=== PATIENT | female | born 1990 | race Caucasian/White ===

== ENCOUNTER 2016-08-15 15:00 | Emergency (ER) | payer OTHER ==
[~2016-08-15] VITALS: Ht 162.6 cm; Wt 52.2 kg
[~2016-08-15 15:00] MED LIST: METO10TA81 PO
--- NOTE | 2016-08-15 15:27 | PHYS DOC ---
Past Medical History Past Medical History: No Pertinent History Past Surgical History: No Surgical History, Other Additional Past Surgical Histo: CYST REMOVED FROM HAND Smoking: Cigarettes Additional Information: 0.5 PPD Alcohol Use: None Drug Use: None Adult General Chief Complaint Chief Complaint: ABDOMINAL PAIN HPI HPI Patient is a 26 year old female who presents with since 6 AM and has had numerous episodes of vomiting, mild slight epigastric pain no diarrhea no fever. The pain does not radiate or get worse with eating. No dysuria or frequency or flank pain. Has had prior episodes similar to this. Is taking Tylenol 3 for a tooth ache. Last menstrual period was 3 days ago. Review of Systems Review of Systems Constitutional: Denies fever or chills [] Eyes: Denies change in visual acuity, redness, or eye pain [] HENT: Denies nasal congestion or sore throat [] Respiratory: Denies cough or shortness of breath [] Cardiovascular: No additional information not addressed in HPI [] GI: Denies abdominal pain, nausea, vomiting, bloody stools or diarrhea [] : Denies dysuria or hematuria [] Musculoskeletal: Denies back pain or joint pain [] Integument: Denies rash or skin lesions [] Neurologic: Denies headache, focal weakness or sensory changes [] Endocrine: Denies polyuria or polydipsia [] All systems negative except as mentioned in history present illness Current Medications Current Medications Current Medications Medications (Trade) Dose Ordered Sig/Oscar Start Time Stop Time Status Last Admin Dose Admin Diphenhydramine HCl (Benadryl) 25 mg 1X ONCE 08/15/16 18:00 08/15/16 18:01 DC 08/15/16 17:56 25 MG Hydromorphone HCl (Dilaudid) 0.5 mg 1X ONCE 08/15/16 18:30 08/15/16 18:31 DC 08/15/16 18:33 0.5 MG Info (Do NOT chart on this entry -- for MONITORING) 1 each PRN DAILY PRN 08/15/16 17:15 08/17/16 17:14 Iohexol (Omnipaque 300 Mg/ml) 75 ml 1X ONCE 08/15/16 17:30 08/15/16 17:31 DC 08/15/16 17:19 75 ML Metoclopramide HCl (Reglan) 5 mg 1X ONCE 08/15/16 18:00 08/15/16 18:01 DC 08/15/16 17:56 5 MG Ondansetron HCl (Zofran) 4 mg 1X ONCE 08/15/16 18:30 08/15/16 18:31 DC 08/15/16 18:31 4 MG Sodium Chloride 1,000 ml @ 1,000 mls/hr 1X ONCE 08/15/16 15:30 08/15/16 16:29 DC 08/15/16 15:38 1,000 MLS/HR Allergies Allergies Allergies Coded Allergies Type Severity Reaction Last Updated Verified amoxicillin Allergy Intermediate 12/14/15 Yes clavulanic acid Allergy Intermediate 12/14/15 Yes Physical Exam Physical Exam Constitutional: Well developed, well nourished, mild acute distress with active vomiting on my exam that looks clear to slightly yellowish, non-toxic appearance. [] HENT: Normocephalic, atraumatic, bilateral external ears normal, oropharynx moist, no oral exudates, nose normal. [] Eyes: PERRLA, EOMI, conjunctiva normal, no discharge. [] Neck: Normal range of motion, no tenderness, supple, no stridor. [] Cardiovascular:Heart rate regular rhythm, no murmur [] Lungs & Thorax: Bilateral breath sounds clear to auscultation [] Abdomen: Bowel sounds normal, soft, mild epigastric tenderness, no masses, no pulsatile masses. [] Skin: Warm, dry, no erythema, no rash. [] Back: No tenderness, no CVA tenderness. [] Extremities: No tenderness, no cyanosis, no clubbing, ROM intact, no edema. [] Neurologic: Alert and oriented X 3, normal motor function, normal sensory function, no focal deficits noted. [] Psychologic: Affect normal, judgement normal, mood normal. [] Current Patient Data Vital Signs Vital Signs Date Time Temp Pulse Resp B/P (MAP) Pulse Ox O2 Delivery O2 Flow Rate FiO2 08/15/16 18:57 90 19 107/65 (79) 94 Room Air 08/15/16 15:13 97.7 97.7 Lab Values Laboratory Tests Test 08/15/16 15:28 08/15/16 15:35 08/15/16 16:17 POC Urine HCG, Qualitative Hcg negative (Negative) White Blood Count 18.3 x10^3/uL (4.0-11.0) H Red Blood Count 4.76 x10^6/uL (3.50-5.40) Hemoglobin 14.9 g/dL (12.0-15.5) Hematocrit 44.7 % (36.0-47.0) Mean Corpuscular Volume 94 fL (79-100) Mean Corpuscular Hemoglobin 31 pg (25-35) Mean Corpuscular Hemoglobin Concent 33 g/dL (31-37) Red Cell Distribution Width 13.1 % (11.5-14.5) Platelet Count 323 x10^3/uL (140-400) Neutrophils (%) (Auto) 81 % (31-73) H Lymphocytes (%) (Auto) 13 % (24-48) L Monocytes (%) (Auto) 5 % (0-9) Eosinophils (%) (Auto) 1 % (0-3) Basophils (%) (Auto) 0 % (0-3) Neutrophils # (Auto) 14.8 x10^3uL (1.8-7.7) H Lymphocytes # (Auto) 2.3 x10^3/uL (1.0-4.8) Monocytes # (Auto) 0.9 x10^3/uL (0.0-1.1) Eosinophils # (Auto) 0.2 x10^3/uL (0.0-0.7) Basophils # (Auto) 0.0 x10^3/uL (0.0-0.2) Sodium Level 145 mmol/L (136-145) Potassium Level 3.6 mmol/L (3.5-5.1) Chloride Level 104 mmol/L (98-107) Carbon Dioxide Level 24 mmol/L (21-32) Anion Gap 17 (6-14) H Blood Urea Nitrogen 12 mg/dL (7-20) Creatinine 1.1 mg/dL (0.6-1.0) H Estimated GFR (Cockcroft-Gault) 59.6 BUN/Creatinine Ratio 11 (6-20) Glucose Level 140 mg/dL (70-99) H Calcium Level 9.1 mg/dL (8.5-10.1) Total Bilirubin 0.8 mg/dL (0.2-1.0) Aspartate Amino Transferase (AST) 27 U/L (15-37) Alanine Aminotransferase (ALT) 27 U/L (14-59) Alkaline Phosphatase 67 U/L (46-116) Total Protein 7.8 g/dL (6.4-8.2) Albumin 4.5 g/dL (3.4-5.0) Albumin/Globulin Ratio 1.4 (1.0-1.7) Lipase 65 U/L (73-393) L Urine Collection Type Unknown Urine Color Tawnya Urine Clarity Cloudy Urine pH 6.5 Urine Specific [place] >=1.030 Urine Protein 100 mg/dL (NEG-TRACE) Urine Glucose (UA) Negative mg/dL (NEG) Urine Ketones (Stick) >=80 mg/dL (NEG) Urine Blood Negative (NEG) Urine Nitrite Negative (NEG) Urine Bilirubin Negative (NEG) Urine Urobilinogen Dipstick 1.0 mg/dL (0.2 mg/dL) Urine Leukocyte Esterase Small (NEG) Urine RBC Occ /HPF (0-2) Urine WBC 1-4 /HPF (0-4) Urine Squamous Epithelial Cells Many /LPF Urine Bacteria Moderate /HPF (0-FEW) Urine Mucus Marked /LPF Laboratory Tests 08/15/16 15:35 Laboratory Tests 08/15/16 15:35 EKG EKG [] Radiology/Procedures Radiology/Procedures CT abdomen and pelvis was negative per radiology report [] Course & Med Decision Making Course & Med Decision Making Pertinent Labs and Imaging studies reviewed. (See chart for details) Plan will be symptomatic treatment and check labs as an initial evaluation and reexamination. Multiple re-exams patient improved throughout the course of her stay. 1925 patient is now tolerated a by mouth fluid challenge and ate some crackers and feels much improved wants to go home. Advised her to discontinue her Tylenol with codeine and clindamycin as that may be contributing to some of these effects she's feeling. She had no facial swelling or neck swelling related to her toothache that's improved. [] Dragon Disclaimer Dragon Disclaimer This electronic medical record was generated, in whole or in part, using a voice recognition dictation system. Departure Departure Impression: Primary Impression: Acute abdominal pain Additional Impression: Nausea vomiting and diarrhea Disposition: HOME, SELF-CARE Referrals: NON,STAFF (PCP) Patient Instructions: Abdominal Pain (Nonspecific), Nausea and Vomiting, Easy- to-Read Scripts Ondansetron (ZOFRAN ODT) 4 Mg Tab.rapdis 1 TAB SL Q8HRS for NAUSEA, #10 TAB 0 Refills Prov: ARTI HOLLEY MD 08/15/16 Problem Qualifiers ARTI HOLLEY MD Aug 15, 2016 15:27
[2016-08-15] MEDS ORDERED: HYDROmorphone 2 MG/ML VIAL IV ONE ×2 (15:30→18:30)
[2016-08-15] MEDS ORDERED: IV NORMAL SALINE 1000ML BAG 1,000 ML IV ONE (15:30)
[2016-08-15] MEDS ORDERED: ONDANSETRON PF 4 MG/2 ML VIAL. IV ONE ×2 (15:30→18:30)
[2016-08-15 15:44] LABS: BASO % 0 % (0-3); EOS % 1 % (0-3); HEMATOCRIT 44.7 % (36.0-47.0); HEMOGLOBIN 14.9 g/dL (12.0-15.5); LYMPH # 2.3 x10^3/uL (1.0-4.8); LYMPH % 13 % (24-48); MEAN CORPUSCULAR HEMOGLOBIN 31 pg (25-35); MEAN CORPUSCULAR HGB CONC 33 g/dL (31-37); MEAN CORPUSCULAR VOLUME 94 fL (79-100); MONO % 5 % (0-9); NEUT % 81 % (31-73); PLATELET COUNT 323 x10^3/uL (140-400); RED BLOOD COUNT 4.76 x10^6/uL (3.50-5.40); RED CELL DISTRIBUTION WIDTH 13.1 % (11.5-14.5); WHITE BLOOD COUNT 18.3 x10^3/uL (4.0-11.0)
[2016-08-15 15:54] LABS: CALCIUM 9.1 mg/dL (8.5-10.1); CREATININE 1.1 mg/dL (0.6-1.0); GFR 59.6; POTASSIUM 3.6 mmol/L (3.5-5.1)
[2016-08-15 16:00] LABS: ALBUMIN 4.5 g/dL (3.4-5.0); ALBUMIN/GLOBULIN RATIO 1.4 (1.0-1.7); TOTAL BILIRUBIN 0.8 mg/dL (0.2-1.0); TOTAL PROTEIN 7.8 g/dL (6.4-8.2)
[2016-08-15 16:35] LABS: BILIRUBIN,URINE NEGATIVE (NEG); GLUCOSE,URINE NEGATIVE (NEG); NITRITE,URINE NEGATIVE (NEG); PH,URINE 6.5; PROTEIN,URINE 100 mg/dL (NEG-TRACE)
[2016-08-15 16:47] LABS: BACTERIA,URINE MODERATE /HPF (0-FEW); RBC,URINE OCC /HPF (0-2); SQUAMOUS EPITHELIAL CELL,UR MANY /LPF
[2016-08-15] MEDS ORDERED: CONTRAST GIVEN MC PRN (17:15)
[2016-08-15] MEDS ORDERED: IOHEXOL 300 MG/ML 75 ML VIAL IV ONE (17:30)
--- NOTE | 2016-08-15 17:39 | RAD ---
CT ABD PELV W/ IV CONTRST ONLY dated 08/15/2016 5:20 PM Indication:GENERALIZED ABD PAIN TODAY, DIARRHEA, [id number] 75ML, NO PRIORS Comparison: No comparison is available. Technique: Following injection of 75 mL of Omnipaque 300 IV, images were obtained through the abdomen and pelvis. No oral contrast was given. One or more of the following individualized dose reduction techniques were utilized for this examination: 1. Automated exposure control 2. Adjustment of the mA and/or kV according to patient size 3. Use of iterative reconstruction technique Findings: The liver and spleen are normal in size without focal lesions. The pancreas, adrenal glands, and kidneys are unremarkable. The unopacified bowel loops are normal in appearance. No free fluid or adenopathy is seen. There is no evidence of a pelvic mass. The appendix is normal. IMPRESSION: Negative CT of the abdomen and pelvis with IV contrast. Electronically signed by: Kat Hilton MD (08/15/2016 5:35 PM) [id number]
[2016-08-15] MEDS ORDERED: diphenhydrAMINE 50 MG/ML VIAL IVP ONE (18:00)
[2016-08-15] MEDS ORDERED: METOCLOPRAMIDE HCL 10 MG/2 ML VIAL. IV ONE (18:00)
[2016-08-15] MEDS ORDERED: ONDA4TAB10 SL (19:37)
[2016-08-15 19:40] VITALS: BP 102/59
== END 2016-08-15 19:47 | disposition home or self-care (01) ==
LOC: ER 15:00
DX: R10.13 Epigastric pain (principal); R11.2 Nausea with vomiting, unspecified; R19.7 Diarrhea, unspecified; F17.210 Nicotine dependence, cigarettes, uncomplicated; Z88.1 Allergy status to other antibiotic agents; Z88.8 Allergy status to other drugs, medicaments and biological substances
CPT/HCPCS: 36415; 74177; 80053; 81001; 81025; 83690; 85027; 87086; 96361; 96374; 96375; 96376; 99285; J1170; J1200; J2405; J2765; J7030; Q9967